=== PATIENT | male | born 1980 | race Caucasian/White ===

== ENCOUNTER 2017-10-26 17:07 | Emergency (ER) | payer MEDICAID | END 2017-10-26 18:55 | disposition home or self-care (01) | LOC: FTE 17:07 | DX: S40.861A Insect bite (nonvenomous) of right upper arm, initial encounter (principal); S00.86XA Insect bite (nonvenomous) of other part of head, initial encounter; W57.XXXA Bitten or stung by nonvenomous insect and other nonvenomous arthropods, initial encounter; Y92.9 Unspecified place or not applicable | CPT/HCPCS: 99282; Z7502 ==